=== PATIENT | male | born 1995 | race Caucasian/White ===

== ENCOUNTER 2016-10-17 08:50 | Emergency (ER) | payer OTHER ==
[2016-10-17 08:54] VITALS: BP 123/82; PULSE 84; RESP 16; TEMP 97.9; O2SAT 94
--- NOTE | 2016-10-17 09:39 | EDPHY ---
H & P Time Seen by Provider: 10/17/16 09:04 HPI/ROS: CHIEF COMPLAINT: right neck/shoulder pain HISTORY OF PRESENT ILLNESS: Patient is a 21-year-old male who presents to the emergency department complaining of right shoulder pain and weakness. Patient was doing an overhead press lifting weights. [place] a sudden sharp pain in his right lateral neck. This extended down to his right shoulder. Occasionally has pain down to his right elbow. He states his right shoulder feels weak. He has no numbness or tingling. He has no midline neck pain. REVIEW OF SYSTEMS: Negative Past Medical/Surgical History: Negative Past surgical history: Noncontributory Smoking Status: Never smoked Physical Exam: Vitals noted General Appearance: Alert and no distress. Head: Pupils equal. Normal. Neck: No tenderness to palpation. Nexus negative. Respiratory: No respiratory distress. Cardiac: regular rate and rhythm. Extremities: Full range of motion, normal appearing. Patient has normal gross strength in his right deltoid, biceps, triceps and forearm. His hand has normal strength and sensation. Skin: No rashes or lesions. Neuro: Alert. Normal mood and affect. Constitutional: Initial Vital Signs Temperature (C) 36.6 C 10/17/16 08:51 Heart Rate 84 10/17/16 08:51 Respiratory Rate 16 10/17/16 08:51 Blood Pressure 123/82 H 10/17/16 08:51 O2 Sat (%) 94 10/17/16 08:51 O2 Delivery Mode Room Air Allergies/Adverse Reactions: No Known Allergies Allergy (Unverified 08/31/15 16:38) Home Medications: Medication Instructions Recorded Cyclobenzaprine [Flexeril] 10 mg PO TID #15 tab 10/17/16 Hydrocodone/APAP 5/325 [Rutherford 1 - 2 tab PO Q4 #13 tab 10/17/16 5/325 (RX)] MOTRIN 10/17/16 predniSONE 20 mg PO DAILY 4 Days 10/17/16 Medical Decision Making ED Course/Re-evaluation: In the emergency department I discussed possible etiologies with the patient and answered all his questions. Patient will be given prescriptions for [place], Flexeril, prednisone. I discussed the treatment plan with the patient. He is aware he needs close follow-up. Differential Diagnosis: My differential includes but is not limited to disc herniation, spinal stenosis , musculoskeletal strain, hematoma, mass Departure - Departure Disposition: Home, Routine, Self-Care Clinical Impression: Neck pain, Cervical neck pain with evidence of disc disease Condition: Good Instructions: Cervical Disc Herniation (ED) Additional Instructions: Take your medications as directed. Often her symptoms will improve with conservative care. This includes rest, prednisone, Flexeril (muscle relaxer), Rutherford (pain medication). Referrals: Patty Thompson DO [Doctor of Osteopathy] - 5-7 days, call for appt. Prescriptions: Cyclobenzaprine [Flexeril] 10 mg PO TID #15 tab Hydrocodone/APAP 5/325 [Rutherford 5/325 (RX)] 1 - 2 tab PO Q4 #13 tab predniSONE 20 mg PO DAILY 4 Days
[2016-10-17] MEDS ORDERED: predniSONE 20 MG TAB PO ONE (09:41)
== END 2016-10-17 09:51 | disposition home or self-care (01) ==
DX: S19.9XXA Unspecified injury of neck, initial encounter (principal); M50.30 Other cervical disc degeneration, unspecified cervical region; X58.XXXA Exposure to other specified factors, initial encounter

== ENCOUNTER 2017-01-10 15:57 | Emergency (ER) | payer OTHER ==
[2017-01-10 16:10] VITALS: TEMP 98.6; O2SAT 96
--- NOTE | 2017-01-10 16:39 | EDPHY ---
General - History Smoking Status: Never smoked Narrative: CHIEF COMPLAINT: Fasciculations, weakness, history of C7 lateral disc bulge HISTORY OF PRESENT ILLNESS: Patient complains of fasciculations of the right thigh, paresthesia of both arms, more prominent on the right. He also complains of heaviness and weakness of both legs. He has no complaints of saddle anesthesia, incontinence of bowel or bladder, retention of bowel or bladder. He has no actual weakness of the arms. He does have ongoing pain in his neck, more so on the right than midline. He has a diagnosis of disc herniation/bulge at C7. He also has a history of atrophy of the right pectoralis muscle. This has all been present for a while, but the symptoms have worsened over the past 2 weeks. This was a gradual onset of change. No trauma or injury to the neck. [id number] changes that were worse when exercising, specifically when laying supine and performing bench press exercise. Improved at rest and minimally present at this time. No other associated complaints or modifying factors. He is currently being managed at [facility] by Dr. Bellamy, and has appointment with his office on . He has done conservative management at this time with an MRI in early November. No surgical consult to this point. No evidence of central cord compression or cauda equina. REVIEW OF SYSTEMS: Ten systems reviewed and are negative unless otherwise noted in the HPI PERTINENT MEDICAL HISTORY: C7 lateral disc herniation to the right EXAMINATION General Appearance: Alert, no distress Head: normocephalic, atraumatic Eyes: Pupils equal and round, no conjunctival pallor or injection ENT, Mouth: Mucous membranes moist. Uvula midline. No erythema edema. Neck: Normal inspection, supple. Mild tenderness of the right trapezius and left trapezius. There is no midline tenderness, crepitus, step-off or deformity. No rigidity. Respiratory: Lungs are clear to auscultation. No wheezing, rhonchi or crackles. There is atrophy of the right pectoralis muscle. Cardiovascular: Regular rate and rhythm. No murmur. Gastrointestinal: Abdomen is soft and nontender Back: non-tender, no bony abnormalities Neurological: Alert and oriented x4. Cranial nerves 2-12 grossly intact. Strength is 5/5 in all 4 limbs. Sensory is intact in all 4 limbs including sharp and dull, and 2 point sensation. No dysmetria. No pronator drift. Normal heel walking and toe walking. No focal deficits. Skin: Warm and dry, no rash. No fasciculations. Extremities: Nontender, no pedal edema. No fasciculations or spasms noted. Range of motion is symmetric in all 4 limbs with excellent strength. Psychiatric: Mood and affect normal DIFFERENTIAL DIAGNOSES: Including but not limited to cervical radiculopathy, acute cord compression, cauda equina, radicular symptoms, neurapraxia, neuropathy MDM: 4:40 p.m. Reports of weakness, heaviness, atrophy in the right chest. He is also having some occasional weakness in the right arm occasionally the left arm now. On examination strength is 5/5 in all 4 limbs. He has sensory intact in all areas , rectal tone not checked. He has 2 point sensation. He has hot cold sensation. He has proprioception intact. He is ambulatory with steady gait. The I have paged Neurosurgery to discuss this case. 4:47 p.m. I have discussed the case with Dr. Jorge Bellamy ([facility]). We discussed the patient's previous diagnoses and most recent visit on December 28. Also inform the physician of the patient's current complaints, including fasciculations and weakness primarily on the right side. I informed the physician that there is no incontinence of bowel or bladder. No saddle anesthesia. I informed the physician that there is no weakness on examination, specifically 5/5 in all 4 limbs. Also informed him that his sensory is intact with a normal, steady gait. Based on these findings and the patient's complaints, he does not recommend an MRI emergently at this time. He recommends the patient be seen on at his already scheduled appointment , and he will also arrange for the patient to be seen by neurosurgeon on that day. I informed the patient of these recommendations, I will adhere to these recommendations. The patient is comfortable with this plan. 5:50 p.m. I have re-evaluated the patient. His neuro exam remains the same at this time. Additionally did check a CK and a UA as he was complaining of muscle weakness and heaviness. These are within normal limits and there is no evidence of rhabdomyolysis. He will be discharged home with the above plan to see his neurologist and neurosurgeon on . He is discharged home, fully ambulatory without assistance and neuro intact. He is stable and comfortable this plan. SUPERVISION: This patient was independently evaluated without direct examination by the attending physician. Case was discussed with attending physician. Phone consultation with neurologist Dr. Bellamy at [facility] (Vinnie Villanueva) Discussion: The patient wasevaluatedand managed by themidlevel provider. My co- signature indicates that Ihave reviewed this chart and I agree with the findings and plan of care asdocumented. I am the secondary supervising physician. (Chloe Lopes) - Objective Vital Signs: Initial Vital Signs Temperature (C) 37 C 01/10/17 16:07 Heart Rate 106 H 01/10/17 16:07 Respiratory Rate 20 01/10/17 16:07 Blood Pressure 134/81 H 01/10/17 16:07 O2 Sat (%) 96 01/10/17 16:07 O2 Delivery Mode Room Air Allergies/Adverse Reactions: No Known Allergies Allergy (Verified 01/10/17 16:07) Home Medications: Medication Instructions Recorded NK [No Known Home Meds] 01/10/17 Departure - Departure Disposition: Home, Routine, Self-Care Clinical Impression: Cervical radiculopathy at C7 Condition: Good Instructions: Cervical Radiculopathy (ED), Neck Pain (ED) Additional Instructions: Follow-up with your appointment on with Neurology and Neurosurgery. Return to the ER for worsening pain, weakness, saddle anesthesia, incontinence of bowel or bladder, retention of bowel or bladder, difficulty walking. Referrals: MARY,ED [Other] - As per Instructions
[2017-01-10 17:41] LABS: COLOR YELLOW; LEUKOCYTE ESTERASE,URINE NEGATIVE (NEGATIVE); NITRITE,URINE NEGATIVE (NEGATIVE)
[2017-01-10 18:53] VITALS: BP 133/86; PULSE 81; RESP 16
== END 2017-01-10 18:53 | disposition home or self-care (01) ==
DX: M54.12 Radiculopathy, cervical region (principal)
CPT/HCPCS: 82947-QW

== ENCOUNTER 2017-01-27 17:55 | Emergency (ER) | payer OTHER ==
[2017-01-27 18:01] VITALS: RESP 16; TEMP 97.7
--- NOTE | 2017-01-27 18:12 | EDPHY ---
H & P Time Seen by Provider: 01/27/17 18:02 HPI/ROS: CHIEF COMPLAINT: Weakness in right foot HISTORY OF PRESENT ILLNESS: This 21-year-old man was lifting weights in October and then started developing weakness and right arm and leg. He had an MRI performed that per his report, showed a C7 lateral disc herniation on the right and has been followed at [facility]. Patient was seen in our emergency department on January 10. At that time he had no objective neurologic deficits and saw his neurologist and a neurosurgeon down at [facility] that week on . At that time had normal chemistry and CPK. Today he presents with new or worsening symptoms lasting over the last 24-48 hours. His primary complaint is that his right foot feels weaker and more numb. He feels like when he walks he has to exert extra effort to prevent his toe from dragging. Associated with some cramping and pain in his right thigh, but without any incontinence. He also has some feeling that his right thumb is weaker and he has some decreased strength in the index and middle fingers of his right hand. He feels the hand is stiff and that it is "not responding" as usual. REVIEW OF SYSTEMS: Eye: no change in vision ENT: no sore throat Cardiac: no chest pain or syncope Pulmonary: no cough or SOB Abdomen: no vomiting, diarrhea, abdominal pain Musculoskeletal: no back pain or neck pain Skin: no rash Neuro: no headache Constitutional: no fever : no urinary symptoms A comprehensive 10 point review of systems is otherwise negative aside from elements mentioned in the history of present illness. PAST MEDICAL HISTORY: Negative except as above and wisdom tooth surgery. Social history: University student General Appearance: Alert and conversant, cooperative. Eyes: No scleral icterus. ENT, Mouth: Normal mucous membranes. Respiratory: Normal respiratory effort, breath sounds equal, lungs are clear to auscultation. Cardiovascular: Regular rate and rhythm. Gastrointestinal: Abdomen is soft and non tender. Neurological: Alert and oriented x3. Normally conversant. Face symmetric, normal movement and sensation in all extremities. Patient has 5/5 strength in deltoids, triceps, biceps, wrist extensors, and intrinsics. He has 2+ patellar and 1+ ankle reflexes symmetric bilaterally. Toes are downgoing and no clonus. He has 5/5 strength in both knee extension and flexion. He can stand on his heels and his toes in the room. Ambulatory without ataxia to the bathroom and back. Skin: Warm and dry, no rashes. Musculoskeletal: No midline spinal tenderness. Psychiatric: Not agitated. Emergency Department course/MDM: Emergency department record from 01/10/2017 personally reviewed. 1828: Dr Hewitt's recommendation for MRI of the neuro-axis discussed with the patient and consented. MRI brain and entire spine. 2255: Results discussed, encourage neurology follow-up, does not appear to have an acute neurosurgical emergency tonight. Smoking Status: Never smoked Constitutional: Initial Vital Signs Temperature (C) 36.5 C 01/27/17 17:58 Heart Rate 85 01/27/17 17:58 Respiratory Rate 16 01/27/17 17:58 Blood Pressure 149/82 H 01/27/17 17:58 O2 Sat (%) 98 01/27/17 17:58 O2 Delivery Mode Room Air Allergies/Adverse Reactions: No Known Allergies Allergy (Verified 01/10/17 16:07) Home Medications: Medication Instructions Recorded NK [No Known Home Meds] 01/10/17 Medical Decision Making - Diagnostics Imaging Results: Imaging Impressions Brain MRI 01/27/17 18:23 Impression: No localizing abnormalities intracranially. Findings and recommendations discussed with BECCA PEREZ at 2220 hour, 2016. Final report concurs with initial preliminary interpretation. Cervical Spine MRI 01/27/17 18:23 Impression: Subacute to chronic disk disease at C3-C4 and C4-C5 with foraminal stenoses as above. No evidence for focal central canal stenosis or cord impingement. Findings and recommendations discussed with Becca Perez M.D., at 2220 hours, on January 27, 2017. Final report concurs with initial preliminary interpretation. Thoracic Spine MRI 01/27/17 18:23 Impression: No localizing abnormalities in the thoracic spine. Findings and recommendations discussed with Becca Perez M.D., at 2230 hours, on January 27, 2017. Final report concurs with initial preliminary interpretation. Lumbar spine: L4-5, L5-1 mild canal stenosis, no reason for arm and leg weakness ; Mao 2250. Differential Diagnosis: Differential for right-sided arm and leg weakness considered including but not limited to peripheral neuropathy, spinal cord problem, intracranial stroke or mass or bleed in the motor area. Consult/Admit Bed Type: Kash 1819 recommends MRI of brain and all spine Departure - Departure Disposition: Home, Routine, Self-Care Clinical Impression: Right leg weakness Condition: Good Instructions: Weakness (ED) Additional Instructions: Please follow-up with your doctor at [facility] or our neurologist next week. No MRI abnormalities tonight to account for symptoms. Referrals: Arvind Hewitt DO [Medical Doctor] - As per Instructions Jorge Bellamy MD [Medical Doctor] - As per Instructions
[2017-01-27 23:19] VITALS: BP 138/90; PULSE 82; O2SAT 97
== END 2017-01-27 23:19 | disposition home or self-care (01) ==
DX: R53.1 Weakness (principal)

== ENCOUNTER 2018-01-20 13:05 | Emergency (ER) | payer OTHER ==
--- NOTE | 2018-01-20 13:37 | EDPHY ---
H & P Smoking Status: Never smoked Time Seen by Provider: 01/20/18 13:16 HPI/ROS: CHIEF COMPLAINT: Bilateral arm weakness, neck weakness HISTORY OF PRESENT ILLNESS: 22-year-old male presents with bilateral arm and neck weakness. He has a history of cervical disc herniation and is seeing a neurologist in [facility]. He has had multiple neurologic symptoms over the past few years, without obvious explanation. He was seen in this emergency department in December 2016 and had an MRI of the entire spine and brain, that were relatively unremarkable. Since then he has had various neurologic symptoms , including facial numbness and extremity weakness and numbness. He was recently cleared to go back to his usual activities. He was on a trampoline 2 days ago and thinks that he may have injured his neck. He has no neck pain. However, he feels that his neck is weak, especially when trying to hold it up straight. He also feels that his arms are flabby and weak. REVIEW OF SYSTEMS: complete 10 point ROS negative except at noted in the HPI (Harini Hamilton) Past Medical/Surgical History: Cervical disc herniation (Harini Hamilton) Physical Exam: General Appearance: Alert, pleasant, very talkative Eyes: Pupils equal and round, no conjunctival pallor or injection ENT, Mouth: Mucous membranes moist Neck: Normal inspection, no tenderness, ROM without pain, holds neck up normally, no muscle atrophy Respiratory: Lungs are clear to auscultation Cardiovascular: Regular rate and rhythm Gastrointestinal: Abdomen is soft and nontender Neurological: A&O, motor 5/5, sensory intact to light touch, normal gait Skin: Warm and dry, no rash Extremities: BUE: good muscle tone, normal inspection Psychiatric: Mood and affect normal (Harini Hamilton) Constitutional: Initial Vital Signs Temperature (C) 36.8 C 01/20/18 13:08 Heart Rate 80 01/20/18 13:08 Respiratory Rate 17 01/20/18 13:08 Blood Pressure 132/78 H 01/20/18 13:08 O2 Sat (%) 96 01/20/18 13:08 O2 Delivery Mode Room Air Allergies/Adverse Reactions: No Known Allergies Allergy (Verified 01/20/18 13:08) Home Medications: Medication Instructions Recorded predniSONE 40 mg PO DAILY #8 tablet 01/20/18 Medical Decision Making - Diagnostics Imaging Results: Imaging Impressions Cervical Spine MRI 01/20/18 13:30 Impression: 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 No intrinsic cord abnormality identified. Please see above. Results were communicated to Dr. Hamilton. MRI report reviewed by me showing above findings. I reviewed the full report ( Nathanael Ernandez) ED Course/Re-evaluation: This patient presents with neck and bilateral upper extremity weakness. He has normal muscular tone and no weakness on my exam. He is holding his head up appropriately and does not appear to be weak. He is requesting an MRI of the cervical spine. I ordered this test and will have him follow up with his neurologist if MRI normal. 3pm: signed over to Dr. Ernandez at shift change. Plan is to check MRI results, d/w pt and d/c home if negative. (Harini Hamilton) Patient was signed out to me at 3:[address] Hamilton. Re-evaluation 4:10 p.m. After review of MRI results Does not exhibit signs of neck weakness he turns his head back and forth as were talking 2 stretches neck E can look up and down. The patient and I discussed MRI results, treatment plan including criteria for return and importance of follow-up and further evaluation. He expresses understanding and agreement. He apparently has a neurosurgeon at [facility] (Nathanael Ernandez) Departure - Departure Disposition: Home, Routine, Self-Care Clinical Impression: Muscular weakness Condition: Good Instructions: Weakness (ED) Additional Instructions: Follow-up with your neurologist. Prednisaone daily next 4 days Return for worsening symptoms. Recheck in 2-3 days if not improved Referrals: SAMUEL KIRK [Other] - As per Instructions Prescriptions: predniSONE 40 mg PO DAILY #8 tablet
--- NOTE | 2018-01-20 14:56 | ASMTCAGE ---
CAGE Do you feel you ought to Answers: No cut down on your drinking or drug use? Do people annoy you by Answers: No criticizing your drinking or drug use? Do you feel guilty about Answers: No your drinking or drug use? Do you drink or use drugs Answers: No first thing in the morning ([employer])? 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 He reports binge drinking 3-4 times per week previously. Date Signed: 01/20/2018 02:55 PM Electronically Signed By:Babs Escalona RN
--- NOTE | 2018-01-20 15:21 | ASMTCMCOM ---
CM Note CM Note Notes: Pt presented to the Emergency Department with bilateral arm, neck weakness and facial numbness. Pt is a college student and lives with friends. Met with pt secondary to a positive SBIRT screen. CAGE completed. 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 See CAGE notes. Pt denies the need for resources at this time. Pt requesting water and some lunch. Update provided to RODO Quiñones. Per Nuria, roni currently NPO, awaiting MRI results. Update provided to pt. CM available for any further issues or concerns. Date Signed: 01/20/2018 03:20 PM Electronically Signed By:Babs Escalona RN
[2018-01-20 16:24] VITALS: BP 122/70
== END 2018-01-20 16:24 | disposition home or self-care (01) ==
DX: M62.81 Muscle weakness (generalized) (principal)